=== PATIENT | male | born 1975 | race Caucasian/White ===

== ENCOUNTER 2022-10-19 00:04 | Emergency (ER) | payer MEDICARE, MEDICAID ==
[~2022-10-19] VITALS: Ht 177.8 cm; Wt 100.0 kg
[2022-10-19 00:08] VITALS: BP 148/102
== END 2022-10-19 01:02 ==
LOC: ER 00:06
DX: Z04.1 Encounter for examination and observation following transport accident
CPT/HCPCS: 99283